=== PATIENT | female | born 1960 | race Caucasian/White ===

== ENCOUNTER 2019-03-25 22:53 | Emergency (ER) | payer OTHER ==
[~2019-03-25] VITALS: Ht 182.9 cm; Wt 78.9 kg
[~2019-03-25 22:53] MED LIST: ACETAMINOPHEN500 M1 PO; ANTACID CHEWAB1 EACH PO; CLARITIN10 M2 PO; CLONAZEPAM0.5 MG PO; CYMBALTA60 MG PO; DULOXETINE HCL30 MG PO; MAGNESIUM GLUCO30 MG PO; METOCLOPRAMIDE10 MG PO; MULTIVITAMINS1 EAC7 PO; NAPROSYN500 MG PO; OMEPRAZOLE20 MG PO; RISPERDAL1 MG PO; SUCRALFATE1 GM PO; TRAZODONE HCL100 MG PO
[2019-03-25] MEDS ORDERED: MULTI-VITAMIN1 EACH PO (23:23)
== END 2019-03-26 00:26 | disposition home or self-care (01) ==
LOC: ED 22:53
DX: J06.9 Acute upper respiratory infection, unspecified (principal); F17.200 Nicotine dependence, unspecified, uncomplicated; F32.9 Major depressive disorder, single episode, unspecified; F41.9 Anxiety disorder, unspecified; Z79.899 Other long term (current) drug therapy
CPT/HCPCS: 99283